=== PATIENT | male | born 1980 | race Caucasian/White ===

== ENCOUNTER 2024-09-03 08:25 | Emergency (ER) | payer OTHER, SELFPAY ==
[2024-09-03 08:26] VITALS: BP 163/93; PULSE 103; RESP 18; TEMP 36.6; O2SAT 100; BMI 38.3
--- NOTE | 2024-09-03 08:44 | ED.RN ---
Pt got flu shot couple days ago. Pt was having sex and had a horrible pain in the back of the neck suddenly.
--- NOTE | 2024-09-03 08:52 | RAD_ITS ---
STUDY: X-RAY CHEST REASON FOR EXAM: Male, 43 years old. Chest pain TECHNIQUE: Single AP portable view of the chest. COMPARISON: None. FINDINGS: EKG electrodes are seen. The lungs are clear and expanded. There is no demonstrated pleural abnormality. Normal size heart. Normal mediastinum and mu. Normal visualized pulmonary arteries. Normal visualized aortic arch and descending thoracic aorta. Normal visualized thoracic spine. Normal visualized ribs, clavicles, and shoulders. There is no demonstrated abnormality of the visualized soft tissue structures of the upper abdomen. RAD/Chest 1 View (Portable) IMPRESSION: Normal x-ray examination of the chest. Electronically Signed: Lg Yoo MD at 9:18 EST ,
--- NOTE | 2024-09-03 08:53 | ED.VIS.CHEST ---
HPI History of Present Illness Chief Complaint: Chest Pain Informant: patient Onset/Context/Timing Onset: - (On Friday while caring 60 pound buckets x 2 at work.) Activity at onset: gradual Timing: Intermittent Quality: Positive for Aching Location: Left Chest Current Severity: Gone Maximum Severity: Moderate Worsened By: Exertion Relieved By: Nothing Associated Symptoms: Positive for Dyspnea; Negative for Nausea, Vomiting, Diaphoresis, Cough, Fever, Lightheadedness, Acid Reflux or Palpitations Narrative Narrative: 43-year-old male past medical history of prior back surgery and hypertension. Says he works on the [employer]. 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 No radiation. Mild shortness of breath. Typically does not get chest pain nor does he have exertional chest pain. Currently he is pain-free symptom-free. He has no cardiac history. No history of DVT or PE. No leg pain or swelling. Also last night he was having intercourse with his he said he had sudden onset of his severe posterior headache that lasted 1 to 2 minutes and then resolved. Denies any weakness or numbness to his extremities. Headache is completely gone. He typically does not get severe headaches. He has had no recent head trauma. There is no family history of brain aneurysms. No intracranial bleeds. Prior Similar Symptoms: No Recent Illness/Hospitalization: No CVD Risk Factors: Positive for Hypertension; Negative for Diabetes, Hypercholesterolemia or Smoking PE Risk Factors: Negative for Recent Travel/Surgery, Recent Immobilization, Prior DVT or PE or OCP + Smoking + >/=35 TAD Risk Factors: Negative for Marfan's Syndrome [facility] Medical History GERD (gastroesophageal reflux disease) Hypertension Carpal tunnel syndrome Allergy/AdvReac Type Severity Reaction Status Date / Time tramadol AdvReac Itching Verified 09/03/24 08:27 Surgical History Previous back surgery Social History Smoking Status: Never smoker ROS ROS ED ROS Narrative Denies recent illness. Constitutional Constitutional ED: Denies chills or fever(s) Eyes Eyes: Reports none ENT ENT ED: Denies ear pain Cardiovascular Cardiovascular: Reports chest pain Respiratory/Chest Respiratory/Chest: Denies cough Gastrointestinal Gastrointestinal: Denies abdominal pain Genitourinary Genitourinary ED: Denies dysuria or hematuria Musculoskeletal Musculoskeletal: Denies arthralgias or back pain Integumentary Denies abscess or Abrasions Neurologic Neurologic: Reports headache(s) Psychiatric Psychiatric: Denies anxiety Endocrine Endocrinology: Denies cold intolerance Hematologic/Lymphatic Hematologic/Lymphatic: Denies easy bleeding or easy bruising Allergic/Immunologic Allergic/Immunologic ED: Denies mouth swelling, tongue swelling or urticaria EXAM Physical Exam Narrative Exam Narrative: Well-appearing 43-year-old male. Vital signs stable blood pressure is elevated 163/93 is a known history of hypertension. Pulse ox 100% on room air no hypoxia. H EENT exam pupils round react light. Extra motions are intact. Neck nontender no JVD. Lungs clear to auscultation bilaterally. Heart regular rhythm rate about 105 no murmur. Chest wall and ribs are nontender. No ecchymosis or bruising. No reproducible pain. Abdomen soft nontender. Moving all 4 extremities. Equal symmetrical radial pulses. 5 out of 5 prn physical therapist strength. Dorsi plantarflexion intact. Calves are nontender without edema or cords. Back nontender. Neurologic exam normal. He is awake alert. Answering questions following commands. Normal strength. Normal sensation. Normal range of motion. NIH is 0. Const Vital Signs: 09/03/24 08:26 09/03/24 08:42 09/03/24 08:52 Temperature 98 F Temperature Source Temporal Pulse Rate 103 H Respiratory Rate 18 Respiratory Effort Normal Non-Labored Respiratory Pattern Normal Blood Pressure 163/93 H Blood Pressure Mean 116 Pulse Ox 100 Oxygen Delivery Method Room Air Room Air Positive well nourished and well developed; Negative for cachectic, contractures or unkempt General Appearance ED: well developed and NAD; Negative for unkempt, cachectic, contractures or pallor Nutritional Appearance: Negative for cachectic HEENT Reports moist mucous membranes normocephalic and atraumatic; Negative for trauma or tenderness Eyes PERRL and EOMs intact bilaterally General Eye ED: Negative for pale conjunctiva, scleral icterus or other Neck no lymphadenopathy, supple and no JVD General: Negative for tenderness Chest Wall inspection of chest normal and palpation of chest normal Chest: Negative for tenderness Resp normal respiratory effort and clear to auscultation bilaterally Effort and Inspection: Negative for respiratory distress Auscultation: Negative for rales, rhonchi, wheezes or diminished lung sounds Cardio regular rate, regular rhythm, S1 normal heart sound, S2 normal heart sound and no murmurs Rate: Negative for bradycardia or tachycardic Rhythm: Negative for abnormal rhythm Peripheral Pulses: pulses 2+ throughout GI normal to inspection, nondistended, normoactive bowel sounds, soft to palpation, non-tender, non-distended and no masses Auscultation: Negative for hyperactive bowel sounds Back/Spine no CVA tenderness and no thoracic nor lumbar tenderness General Back: Negative for CVA tenderness Cervical Spine: Negative for cervical spine tenderness Extremity normal to inspection General Extremety ED: Negative for edema, pulses abnormal or tenderness General Extremity: Negative for edema or pulses abnormal Neuro oriented x3 and CN's II-XII intact bilaterally Sensorium / Orientation: awake, alert, oriented to person, oriented to place and oriented to time; Negative for confused, lethargic, stuporous or other Motor Exam: strength 5/5 throughout Psych mental status grossly normal Appearance: Negative for unkempt Attitude: No agitated Mood & Affect: Negative for depressed, anxious or tearful Skin no rashes or lesions noted and no wounds General Skin Exam: Negative for jaundice or pallor Rashes: No rashes noted Trauma: Negative for abrasion, laceration or puncture Heart Score History: Moderately Suspicious ECG: Normal Age: >45 - <65 years Risk Factors: 1 or 2 Risk Factors Troponin: </= Normal Limit Score: 3 MDM MDM MDM Narrative Medical decision making narrative: 43-year-old male with chest pain on Friday. Resolved last about 5 minutes. He is got a normal exam and no reproducible chest wall pain. No history of DVT risk factors. Will undergo cardiac workup. The second issue was a sudden onset of headache which she described as a severe headache. Will obtain a CTA to rule out an aneurysm or intracranial bleed. My suspicion is low for that. He has a normal neurologic exam. Repeat exam at 9:47 AM patient doing well. Exam normal and unchanged. We discussed all his test results. There is no reason to do a repeat 2-hour troponin because his chest pain was on Friday. He has not had any at all today. I explained note his cardiac workup is negative but I would follow-up with an outpatient stress test with his primary care physician Dr. Weiner patient agreed. CAT scan of his brain was normal there is no bleed or aneurysm. He is comfortable being discharged to home. History & Record Review Discussion w/independent historian: Patient Additional record(s) reviewed:: Prior inpatient record, Prior outpatient record, Prior ED visit and Prior labs Lab Data Attestation: I reviewed the patient's lab results. Lab results narrative: CBC normal. White count of 4. H&H 16 and 46. Latest to 35. Electrolytes are unremarkable gap 5. Normal BUN and creatinine of 14 and 1. Glucose 128. Troponin 4. Labs: Laboratory Results - last 24 hr 09/03/24 08:46 WBC 4.9 RBC 5.27 Hgb 16.4 Hct 46.9 MCV 89.0 MCH 31.1 MCHC 35.0 RDW Std Deviation 42.5 RDW Coeff of Gonzalez 12.9 Plt Count 235 MPV 9.1 Immature Gran % (Auto) 0.200 Neut % (Auto) 54.4 Lymph % (Auto) 31.4 [place] % (Auto) 11.2 H Eos % (Auto) 2.6 Baso % (Auto) 0.2 Absolute Neuts (auto) 2.7 Absolute Lymphs (auto) 1.54 Nucleated RBC % 0 Sodium 137 Potassium 4.2 Chloride 105 Carbon Dioxide 28.0 Anion Gap 5 BUN 14 Creatinine 1.04 Estim Creat Clear Calc 117.08 Est GFR (MDRD) Af Amer 99 Est GFR (MDRD) Non-Af 82 BUN/Creatinine Ratio 13.5 Glucose 128 H Calcium 9.4 Troponin I High Sens 4 Radiography Chest X-Ray - ED: 1 View, Read by ED Physician, Read by Radiologist, Heart, Lungs, Mediastinum, Bony Structures, No Acute Disease and Chronic Changes Diagnostic Testing: Clinical Impression(s) from Imaging Studies Chest X-Ray 09/03/24 08:52 IMPRESSION: Normal x-ray examination of the chest. Electronically Signed: Lg Yoo MD at 9:18 EST , Head CTA 09/03/24 09:00 IMPRESSION: Normal unenhanced and enhanced CT scan of the brain. Electronically Signed: Lg Yoo MD at 9:20 EST , Chest x-ray, portable, single view interpreted by myself and the radiologist shows no acute abnormality. Normal cardiac silhouette. Normal lung verdugo. Rhythm Strip Rhythm Strip: Sinus Tach Rate: 108 Ectopy: None EKG Initial EKG: Attestation: I personally reviewed and interpreted this EKG as follows: Interpretation: No Acute Injury Pattern and Sinus Tachycardia Comments: Sinus tachycardia rate of 108 no acute signs of MT or ischemia. Discharge Plan Triage Chief Complaint: Chest Pain ED Provider: Guido Valentin Dx/Rx/DC Orders Clinical Impression: Chest pain of uncertain etiology, Headache, History of hypertension Instructions: ED Chest Pain, Uncertain Cause Primary Care Provider: Jorge Weiner Referrals: Jorge Weiner MD [Primary Care Provider] - As soon as possible Activity Restrictions/Additional Instructions: Your test today were normal including your CAT scan. Due to your recent exertional chest pain to be safe I would follow-up with your primary care physician and get a set up for an outpatient stress test. Obviously if you are feeling worse or get worsening chest pain return. Print Language: Honduran Disposition Disposition: Home, Self Care
--- NOTE | 2024-09-03 09:00 | CT_ITS ---
STUDY: CT BRAIN WITH AND WITHOUT CONTRAST REASON FOR EXAM: Male, 43 years old. sudden onset headache RADIATION DOSAGE (If Supplied By Facility): CTDIvol = ( 29.43 ) mGy, DLP = ( 1263.67 ) mGycm TECHNIQUE: Transaxial CT imaging of the brain was performed pre and post contrast administration. The examination was performed with intravenous administration of IV 100mL Isovue-370. Individualized dose optimization techniques were used for this CT. COMPARISON: None. FINDINGS: Normal soft tissue structures. Normal calvarium. Normal size ventricles and extra-axial spaces for the patient''s age. Normal white matter tracts of the cerebral hemispheres. Normal basal ganglia and thalami. Normal brainstem. Normal cerebellum. There is no intracranial hemorrhage. There are no findings of an acute ischemic infarction. Normal visualized paranasal sinuses. CT/CTA Head W/WO Contrast IMPRESSION: Normal unenhanced and enhanced CT scan of the brain. Electronically Signed: Lg Yoo MD at 9:20 EST ,
[2024-09-03 09:02] LABS: Absolute Lymphocyte Count 1.54 X10^3/uL (0.83-4.51); Absolute Neutrophil Count 2.7 X10^3/uL (2.0-7.7); Basophil# 0.01 X10^3/uL; Basophil% 0.2 % (0-1); Eosinophil# 0.13 X10^3/uL; Eosinophils% 2.6 % (0-5); Hematocrit 46.9 % (40-54); Hemoglobin 16.4 g/dL (13.0-16.5); Lymphocyte # 1.54 X10^3/ul (0.83-4.51); Lymphocyte % 31.4 % (19-41); Mean Corpuscular Hgb 31.1 pg (27.0-32.0); Mean Platelet Vol. 9.1 fl (6.2-12.0); Monocyte# 0.55 X10^3/uL; Monocyte% 11.2 % (0-10); NRBC Flagged by Analyzer 0 % (0-5); Neutrophil # 2.67 X10^3/uL (2.7-7.7); Neutrophil % 54.4 % (47-70); Platelet Count 235 K/mm3 (150-450); RBC Distribution Width CV 12.9 % (11.6-14.6); RBC Distribution Width SD 42.5 fl (35.1-43.9); Red Blood Count 5.27 M/mm3 (4.6-6.2); White Blood Count 4.9 K/mm3 (4.4-11.0)
[2024-09-03 09:21] LABS: Anion Gap 5 (5-15); BUN 14 mg/dL (7-18); BUN/Creat Ratio 13.5 RATIO (10-20); Calcium,Total 9.4 mg/dL (8.5-10.1); Chloride 105 mmol/L (98-107); Creatinine, Serum 1.04 mg/dL (0.70-1.30); EST Glomerular Filtration Rate 82 mL/min (>60); Est Glom Filt Rate - Afr Amer 99 mL/min (>60); Estimated Creatinine Clearance 117.08 ml/min; Glucose 128 mg/dL (74-106); Potassium 4.2 mmol/L (3.5-5.1); Sodium Level 137 mmol/L (136-145); Troponin-I HS (w/2H Reflex) 4 pg/mL (3.0-78.0)
--- NOTE | 2024-09-03 09:59 | CM.ED ---
Social work Reason for referral: validation of AD Referral source: case find This acknowledged patient's need for advance directives to be validated. Patient stated patient's advance directives were completed and on file with a law firm in [place]. Patient stated patient's HCPOA is patient's , Cora. Patient received this business card and agreed to send or bring in advance directives to have on patient's chart at [facility]. No other needs identified at this time. Moni Tsang, [employer], [employer]
[2024-09-03 10:05] VITALS: BP 146/67; PULSE 82; RESP 16; TEMP 36.4; O2SAT 98
[2024-09-03 10:57] LABS: Reflex Troponin-HS? (from REC) Y
== END 2024-09-03 10:05 | disposition home or self-care (01) ==
PROVIDERS: Emergency Provider Emergency Medicine; PCP Internal Medicine; Visit Provider Emergency Medicine
DX: R07.9 Chest pain, unspecified (principal); R51.9 Headache, unspecified; I10 Essential (primary) hypertension; R06.02 Shortness of breath
CPT/HCPCS: 70496; 71045; 80048; 84484; 85025; 93005; 99284; Q9967; A4216